=== PATIENT | female | born 1995 | race Caucasian/White ===

== ENCOUNTER 2021-11-04 12:22 | Emergency (ER) | payer OTHER ==
[2021-11-04 12:38] VITALS: BP 115/81; PULSE 111; RESP 18; TEMP 98.4; BMI 26.2
[2021-11-04 14:16] LABS: BASO % 0.3 % (0-2.0); HEMATOCRIT 39.1 % (32.4-45.2); HEMOGLOBIN 12.5 GM/dL (10.7-15.3); MCH 25.4 pg (25.7-33.7); MCHC 32.1 g/dl (32.0-36.0); MEAN CELL VOLUME 79.1 fl (80-96); MEAN PLT VOLUME 8.3 fl (7.5-11.1); MONO % 7.8 % (3.8-10.2); NEUT % 66.9 % (42.8-82.8); PLATELET COUNT 236 10^3/uL (134-434); RBC 4.95 M/mm3 (3.60-5.2); RDW 14.7 % (11.6-15.6); WHITE BLOOD COUNT 10.9 K/mm3 (4.0-10.0)
[2021-11-04 14:37] LABS: ALBUMIN 3.1 g/dl (3.4-5.0); BLOOD UREA NITROGEN 7.1 mg/dL (7-18); CALCIUM 8.9 mg/dL (8.5-10.1)
[2021-11-04 14:41] LABS: BILIRUBIN,TOTAL 0.3 mg/dL (0.2-1); CREATININE 0.5 mg/dL (0.55-1.3); TOT PROT 6.9 g/dl (6.4-8.2)
[2021-11-04] MEDS ORDERED: ALBUTEROL SO4 2.5/IPRATROPIUM 0.5 INH SOL 3 ML VIAL.NEB. NEB ONE (14:50)
[2021-11-04] MEDS ORDERED: predniSONE 20 MG TABLET (UD) PO ONE (15:00)
[2021-11-04] MEDS ORDERED: predniSONE 20 MG TABLET (UD) ONE ×2 (15:08→15:26)
[2021-11-04] MEDS: ALBUTEROL SO4 2.5/IPRATROPIUM 0.5 INH SOL 3 ML VIAL.NEB. NEB SCH ×3 (15:22→15:24)
[2021-11-05] MEDS ORDERED: predniSONE 20 MG TABLET (UD) PO ONE (15:00)
== END 2021-11-04 17:50 | disposition home or self-care (01) ==
LOC: JER 12:22
PROC: 3E0F7GC Introduction of Other Therapeutic Substance into Respiratory Tract, Via Natural or Artificial Opening (ICD-10-PCS; principal; 2021-11-04)
DX: O99.513 Diseases of the respiratory system complicating pregnancy, third trimester (principal); J45.41 Moderate persistent asthma with (acute) exacerbation; Z3A.33 33 weeks gestation of pregnancy
CPT/HCPCS: 0241U-QW; 36415; 71046-TC-FY; 76604; 76815; 80053; 84080; 85025; 86850; 86900; 86901; 93005; 93010; 93308; 99285-25

== ENCOUNTER 2021-12-24 16:35 | Inpatient (IN) | payer OTHER ==
[2021-12-24] MEDS ORDERED: OXYTOCIN 30 UNITS in 0.9% NS 30 UNIT/500 ML INFUS.BAG IVPB SCH (20:15)
[2021-12-24] MEDS: DEXTROSE 5%-LACTATED RINGERS 1,000 ML IV SCH (20:15)
[2021-12-24] MEDS ORDERED: OXYTOCIN 30 UNITS in 0.9% NS 30 UNIT/500 ML INFUS.BAG IVPB ONE (20:20)
[2021-12-24 21:26] LABS: BASO % 0.2 % (0-2.0); EOS % 4.1 % (0-4.5); HEMATOCRIT 34.9 % (32.4-45.2); HEMOGLOBIN 11.5 GM/dL (10.7-15.3); LYMPH % 16.7 % (8-40); MCH 25.3 pg (25.7-33.7); MCHC 32.9 g/dl (32.0-36.0); MEAN CELL VOLUME 76.9 fl (80-96); MEAN PLT VOLUME 8.3 fl (7.5-11.1); MONO % 8.1 % (3.8-10.2); NEUT % 70.9 % (42.8-82.8); PLATELET COUNT 212 10^3/uL (134-434); RBC 4.54 M/mm3 (3.60-5.2)
[2021-12-24 21:34] LABS: INR 0.95 (0.83-1.09); PROTHROMBIN TIME (PATIENT) 10.9 SEC (9.7-13.0)
[2021-12-24 21:37] LABS: ACTIVATED PTT 29.2 SECONDS (25.2-36.5)
[2021-12-24 21:50] LABS: BLOOD UREA NITROGEN 7.9 mg/dL (7-18); CALCIUM 8.2 mg/dL (8.5-10.1)
[2021-12-24 21:55] LABS: CREATININE 0.5 mg/dL (0.55-1.3)
[2021-12-24 22:18] LABS: SYPHILIS W/ RPR CONF NON-REACTIVE (NONREACTIVE)
[2021-12-24 22:47] LABS: HIV INTERPRETATION NEGATIVE (NEGATIVE)
[2021-12-24 23:39] VITALS: BMI 29.9
[2021-12-25] MEDS ORDERED: FENTANYL/BUPIVACAINE/NS/PF - PCEA - 50 ML DISP.SYRIN EP ONE (01:12)
[2021-12-25] MEDS ORDERED: BUPIVACAINE HCL/PF 0.25% (2.5MG/ML) 10 ML VIAL ONE (01:32)
[2021-12-25] MEDS ORDERED: NALOXONE HCL 0.4 MG/ML VIAL IVPUSH PRN (01:59)
[2021-12-25] MEDS ORDERED: FENTANYL/BUPIVACAINE/NS/PF - PCEA - 50 ML DISP.SYRIN EP SCH (02:00)
[2021-12-25] MEDS: DEXTROSE 5%-LACTATED RINGERS 1,000 ML IV SCH (02:50)
[2021-12-25] MEDS ORDERED: OXYTOCIN 20 UNITS in 0.9% NS 20 UNIT/1,000 ML INFUS.BAG IV ONE (04:16)
[2021-12-25] MEDS ORDERED: BISACODYL 10 MG SUPP.RECT RC PRN (05:12)
[2021-12-25] MEDS ORDERED: METHYLERGONOVINE MALEATE 0.2 MG/1 ML AMP IM PRN (05:12)
[2021-12-25] MEDS ORDERED: IBUPROFEN 600 MG TABLET (FP) PO PRN (05:12)
[2021-12-25] MEDS ORDERED: WITCH HAZEL 50% (TUCKS) 40 PAD/JAR PAD TP PRN (05:12)
[2021-12-25] MEDS ORDERED: BENZOCAINE 28 GM HEMORRHOIDAL OINTMENT TP PRN (05:12)
[2021-12-25] MEDS ORDERED: BENZOCAINE 20% 57 GM BOTTLE TP PRN (05:12)
[2021-12-25] MEDS ORDERED: ACETAMINOPHEN 325 MG TABLET (FP) PO PRN (05:12)
[2021-12-25] MEDS ORDERED: oxyCODONE HCL 5 MG TABLET PO PRN (05:12)
[2021-12-25] MEDS ORDERED: OXYTOCIN 20 UNITS in 0.9% NS 20 UNIT/1,000 ML INFUS.BAG IV SCH (05:15)
[2021-12-25 06:28] LABS: CORD BASE EXCESS -2.1 mmol/L (0-2); CORD HCO3 23.3 mmHg (20-29); CORD PCO2 42.2 mmHg (30-78); CORD pH 7.36 (7.14-7.44)
[2021-12-25 06:32] LABS: CORD HCO3 25.8 mmHg (20-29); CORD PCO2 69.5 mmHg (30-78); CORD pH 7.187 (7.14-7.44)
[2021-12-26 08:45] LABS: POC NITRAZINE POS
[2021-12-26 09:36] LABS: BASO % 0.4 % (0-2.0); EOS % 4.5 % (0-4.5); HEMATOCRIT 30.4 % (32.4-45.2); HEMOGLOBIN 9.9 GM/dL (10.7-15.3); LYMPH % 24.2 % (8-40); MCH 25.4 pg (25.7-33.7); MCHC 32.7 g/dl (32.0-36.0); MEAN CELL VOLUME 77.9 fl (80-96); MEAN PLT VOLUME 8.7 fl (7.5-11.1); NEUT % 62.9 % (42.8-82.8); PLATELET COUNT 172 10^3/uL (134-434); RDW 15.1 % (11.6-15.6); WHITE BLOOD COUNT 8.4 K/mm3 (4.0-10.0)
[2021-12-26] MEDS ORDERED: SENNOSIDES/DOCUSATE COMBO (SENNA PLUS) TABLET (UD) PO PRN (22:00)
[2021-12-27 09:16] VITALS: BP 123/84; PULSE 85; RESP 15; TEMP 97.2
== END 2021-12-27 12:30 | disposition home or self-care (01) | DRG 560 ==
LOC: JDEL 16:35 → JLDR 19:35 → J3W 12-25 08:15
PROVIDERS: ADMIT Obstetrics & Gynecology; ATTEND Obstetrics & Gynecology
PROC: 10E0XZZ Delivery of Products of Conception, External Approach (ICD-10-PCS; principal; 2021-12-25)
DX: O42.02 Full-term premature rupture of membranes, onset of labor within 24 hours of rupture (principal); O23.43 Unspecified infection of urinary tract in pregnancy, third trimester; N39.0 Urinary tract infection, site not specified; O69.81X0 Labor and delivery complicated by cord around neck, without compression, not applicable or unspecified; O90.81 Anemia of the puerperium; D64.9 Anemia, unspecified; Z3A.39 39 weeks gestation of pregnancy; Z37.0 Single live birth
CPT/HCPCS: 36415; 36600; 59409; 76819-TC; 80048; 82803; 83986-QW; 85025; 85610; 85730; 86780; 86850; 86900; 86901; 87389; C9803-CS; U0003; U0005